=== PATIENT | female | born 1965 | race Caucasian/White ===

== ENCOUNTER 2018-10-22 18:30 | Inpatient (IN) | payer MEDICARE, MEDICAID ==
[~2018-10-22] VITALS: Ht 175.3 cm; Wt 127.0 kg
[2018-10-22] MEDS ORDERED: XARE20TA PO ×2 (18:54→23:04)
[2018-10-22] MEDS ORDERED: OXYC-404 PO (18:54)
[2018-10-22] MEDS ORDERED: EPIP0.3I2 IJ (18:54)
[2018-10-22] MEDS ORDERED: LOSA50TA88 PO (18:54)
[2018-10-22] MEDS ORDERED: ZETI10TA30 PO ×2 (18:54→23:04)
[2018-10-22] MEDS ORDERED: LIPI80TA PO (18:54)
[2018-10-22] MEDS ORDERED: RANI1SYP PO (18:54)
[2018-10-22] MEDS ORDERED: TOPA50TA8 PO (18:54)
[2018-10-22] MEDS ORDERED: DEPA1TAB3 PO (18:54)
[2018-10-22] MEDS ORDERED: ZOLO100T PO (18:54)
[2018-10-22] MEDS ORDERED: VERA360C PO ×2 (18:54→23:04)
[2018-10-22] MEDS ORDERED: FENT12PA TOP (18:54)
[2018-10-22] MEDS ORDERED: ONDANSETRON 4MG/2ML VIAL (J2405) IV ONE (20:30)
[2018-10-22 20:36] LABS: BASO % 0.1 % (0.0-1.0); HEMATOCRIT 39.2 % (36.0-47.0); HEMOGLOBIN 13.5 g/dl (12.0-15.5); LYMPH # 0.8 10^3/uL (1.5-4.5); LYMPH % 7.5 % (24.0-44.0); MEAN CORPUSCULAR HEMOGLOBIN 31.9 pg (27.0-33.0); MEAN CORPUSCULAR HGB CONC 34.4 g/dl (32.0-36.5); MEAN CORPUSCULAR VOLUME 92.7 fl (80.0-96.0); MONO # 0.2 10^3/uL (0.0-0.8); MONO % 1.8 % (0.0-5.0); NEUTROPHILS # 9.6 10^3/uL (1.8-7.7); NEUTROPHILS % 90.1 % (36.0-66.0); PLATELET COUNT, AUTOMATED 147 10^3/uL (150-450); RED BLOOD COUNT 4.23 10^6/uL (4.00-5.40); WHITE BLOOD COUNT 10.6 10^3/uL (4.0-10.0)
[2018-10-22] MEDS: MORPHINE 4 MG/ML 1ML VIAL/SYRINGE (J2270) IV PRN ×2 (20:42→22:03)
[2018-10-22 20:45] LABS: INR 1.04; PROTHROMBIN TIME 13.7 SECONDS (12.1-14.4)
[2018-10-22 20:53] LABS: BLOOD UREA NITROGEN 18 MG/DL (7-18); CALCIUM LEVEL 8.2 MG/DL (8.5-10.1); CARBON DIOXIDE LEVEL 24 MEQ/L (21-32); CHLORIDE LEVEL 106 MEQ/L (98-107); CREATININE FOR GFR 0.78 MG/DL (0.55-1.30); GLOMERULAR FILTRATION RATE > 60.0 (>51); GLUCOSE, FASTING 125 MG/DL (70-100); POTASSIUM SERUM 4.4 MEQ/L (3.5-5.1); SODIUM LEVEL 139 MEQ/L (136-145)
--- NOTE | 2018-10-22 22:09 | REP ---
Clinical: Left knee swelling . Technique: AP, lateral, bilateral oblique views of the left knee. Findings: No acute fracture or dislocation is appreciated. Mild/early moderate degenerative changes include cortical irregularity and subtle spurring primarily involving the femoral condyles as well as evidence for chondrocalcinosis. Lateral view demonstrates suprapatellar effusion. Impression: Mild/moderate degenerative changes. Suprapatellar effusion. Electronically Signed by Jason Ramires MD 10/22/2018 10:01 P
--- NOTE | 2018-10-22 22:10 | REPVR ---
EXAM: US Duplex Left Lower Extremity Veins, Limited EXAM DATE/TIME: 10/22/2018 9:41 PM CLINICAL HISTORY: 53 years old, female; Pain; Other: Knee; Additional info: Swelling, pain TECHNIQUE: Real-time Duplex ultrasound of the Left Lower Extremity with 2-D de leon scale, color Doppler flow and spectral waveform analysis. Limited exam focused on the left lower extremity veins. COMPARISON: No relevant prior studies available. FINDINGS: Left deep veins: Unremarkable. The common femoral, femoral and popliteal veins are patent without thrombus. Normal compressibility, augmentation response and Doppler waveforms. Left superficial veins: Unremarkable. Saphenofemoral junction is patent without thrombus. Soft tissues: Unremarkable. IMPRESSION: No sonographic evidence of deep vein thrombosis. Electronically signed by: Kehinde Flanagan On 10/22/2018 22:09:59 PM
[2018-10-22] MEDS ORDERED: FAMOTIDINE 20 MG TAB PO ONE (22:30)
[2018-10-22] MEDS ORDERED: OXYC20TA2 PO (22:52)
[2018-10-22] MEDS ORDERED: ATOR80TA59 PO (23:04)
[2018-10-22] MEDS ORDERED: RANI150C PO (23:04)
[2018-10-22] MEDS ORDERED: LOSA100T50 PO (23:04)
[2018-10-22] MEDS ORDERED: DIVA500T94 PO (23:04)
[2018-10-22] MEDS ORDERED: SERT-138 PO (23:04)
[2018-10-22] MEDS ORDERED: FENT1DIS14 TD (23:04)
[2018-10-22] MEDS ORDERED: TOPI50TA9 PO (23:04)
[2018-10-22] MEDS ORDERED: EPIP0.3I2 INJ (23:04)
[2018-10-23] MEDS ORDERED: ACETAMINOPHEN TAB 650MG DOSE (2X325MG) PO PRN (00:45)
[2018-10-23 00:59] VITALS: BP 168/78
[2018-10-23] MEDS: MORPHINE 4 MG/ML 1ML VIAL/SYRINGE (J2270) IV PRN ×4 (01:27→18:55)
[2018-10-23] MEDS ORDERED: ATORVASTATIN 20 MG TAB PO ONE (01:30)
[2018-10-23] MEDS ORDERED: VERAPAMIL 120 MG SR TAB PO ONE (01:30)
[2018-10-23 08:00] VITALS: BP 109/62
--- NOTE | 2018-10-23 08:28 | HPE ---
DATE OF ADMISSION: 10/22/2018 CHIEF COMPLAINT: Left knee pain following intra-articular steroid injection. HISTORY OF PRESENT ILLNESS: This 53-year-old female presented to the emergency department by ambulance. This was later yesterday evening. She was complaining about the acute onset of left knee pain following left knee injection and aspiration. This was performed by the PAYTON Gordon at [facility]. She has had Euflexxa injections in the left knee in the past without problems. This time an aspiration was attempted to be performed to rule out rheumatoid arthritis or crystalline arthropathy. This was followed by steroid injection through the same area at the anterolateral aspect of the knee. She tolerated the procedure well but then noticed about an hour later extreme knee pain. She then presented to the emergency room with difficulty ambulating. She has not noticed any constitutional symptoms such as fever, chills, sweats at night, cough, abdominal pain, nausea, vomiting, dysuria or any other symptoms. There was not any increased swelling to the knee or redness or warmth. She was just having difficulty fully flexing the knee and ambulating on it. 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 Her calf is not bothering her today. Also important to her history is that she is on Xarelto for a deep vein thrombosis (DVT) in her left lower extremity in the past. She did state that she had stopped that the day before and that day of getting the injection. She had also had blood work drawn that morning, ordered by Yoselin Gordon. PAST MEDICAL HISTORY: Includes: Hypertension. Psychiatric disorder. Gastroesophageal reflux disease (GERD). DVT. Compartment syndrome of the left lower extremity. MEDICATIONS: Ambulatory medications reported as: - atorvastatin - divalproex sodium - EpiPen - ezetimibe - fentanyl - losartan - oxycodone - ranitidine - Xarelto 20 mg by mouth daily - sertraline - topiramate - verapamil ALLERGIES: She has had allergic reactions to: 1. HYDROCHLOROTHIAZIDE. 2. NIACIN. 3. PENICILLIN. 4. PENICILLIN CROSS REACTORS. 5. QUINOLONES. 7. SULFA DRUGS. PAST SURGICAL HISTORY: Carpal tunnel release. Anterior cervical fusion. Dilatation and curettage. Hysteroscopy. REVIEW OF SYSTEMS Was negative for any constitutional symptoms in any system, other than difficulty ambulating on the left lower extremity. PHYSICAL EXAMINATION: VITAL SIGNS: Throughout her visit temperature 98.9 and 97.6. Blood pressure last night at 2:00 a.m. 168/78. Pulse rate 93. Sats 93% on room air. Respiratory rate 20. When I examined her, she was lying supine in her bed. She is alert and oriented times three. Mood and affect a little bit anxious. Lower extremity alignment is normal. Examination of the lower extremities: I removed the bandage from the anterolateral aspect of her knee. There is some slight amount of swelling but no redness or drainage from the anterolateral aspiration and injection site. No effusion noted although she does have an increased BMI, so it is slightly difficult to tell. Range of motion actively passively was from 0 to about 90 degrees of flexion, 0 to 125 degrees on the contralateral side. No evidence of instability. No redness or warmth or drainage from the knee. She had normal sensation distally in her lower extremities. Feet were warm and well-perfused on both sides. She is able to wiggle her toes, dorsiflex and plantar flex her foot. There is long incisions on the lower extremity consistent with compartment release that appear normal. Calf is soft. No pain to calf and no lumps, bumps, swelling or masses in her lower extremities. Laboratory examination from her visit last night at 2025 hours revealed WBC 10.6. Hemoglobin of 13.5. PT 13.7, INR 1.04 and APTT 32.0. Chemistries was normal. Blood work performed by Yoselin Gordon revealed WBC 6.7, neutrophil percentage 60.2. Uric acid normal 3.4. CRP 0.32. JOVON and Lyme disease are both pending. ESR was 17. Ultrasound was performed and was negative for DVT. Radiographs were performed upon presentation to the ED. These revealed moderate tricompartmental osteoarthritis of the left knee. There is also signs of CPPD with calcification of the meniscus. Very small effusion and no obvious fracture or other soft tissue abnormality. ASSESSMENT/PLAN: This 53-year-old female with an acute flare reaction following a left knee injection. I believe we can make her weightbearing as tolerated. I would like to monitor for any signs of infection over the next 24 hours, but my clinical suspicion based on her clinical exam, blood work and timeline of her pain do not fit with infection, but I do think it is reasonable to obtain serial CRP tests to rule this out. I do not think it is a good idea to try a repeat aspiration of the knee as I think that due to being on Xarelto chronically for left lower extremity DVT could have contributed to a slight amount of bleeding intra-articular of the knee which is quite an irritant to the synovium and can be increasing her pain. When I saw her, she was already asking if she could go home as she did have appointments for physiotherapy and a psychiatric visit later the next day, but I think it is more reasonable to least monitor her for at least one day to ensure that this is settling down. We will try to mobilize her weightbearing as tolerated, elevate the leg, as well as try some anti-inflammatory medications to try and help settle down her pain. Thank you very much for the consult. Edited 10/24/2018 @ 0722 siri
[2018-10-23] MEDS ORDERED: fentaNYL 25 MCG/HR PATCH TD SCH (09:00)
[2018-10-23] MEDS: NAPROXEN 250 MG TAB PO SCH ×2 (09:24→20:44)
[2018-10-23] MEDS ORDERED: FENTANYL REMOVAL DOCUMENTATION MISC XX SCH (12:45)
[2018-10-23] MEDS: DIVALPROEX 500 MG TAB PO SCH ×2 (13:33→20:44)
[2018-10-23] MEDS: LOSARTAN 50 MG TAB PO SCH (13:34)
[2018-10-23] MEDS: FAMOTIDINE 20 MG TAB PO SCH (13:34)
[2018-10-23] MEDS: SERTRALINE 100 MG TAB PO SCH (13:34)
[2018-10-23 16:00] VITALS: BP 137/76
[2018-10-23] MEDS ORDERED: RIVAROXABAN 20 MG TAB (XARELTO) PO SCH (17:00)
[2018-10-23] MEDS: NICOTINE 14 MG/24 HR TRANSDERMAL TD SCH (17:21)
[2018-10-23 20:00] VITALS: BP 130/64
[2018-10-23] MEDS: oxyCODONE 5MG TAB PO PRN (20:48)
[2018-10-23] MEDS ORDERED: TOPIRAMATE (TopAMAX) 25 MG TAB PO SCH (21:00)
[2018-10-23] MEDS ORDERED: ATORVASTATIN 20 MG TAB PO SCH (21:00)
[2018-10-23] MEDS ORDERED: EZETIMIBE 10 MG TAB (ZETIA) PO SCH (21:00)
[2018-10-23] MEDS ORDERED: VERAPAMIL 120 MG SR TAB PO SCH (21:00)
[2018-10-23 21:51] VITALS: BP 159/79
[2018-10-24 06:00] VITALS: BP 123/62
--- NOTE | 2018-10-24 07:30 | IPN ---
DATE: 10/24/2018 CHIEF COMPLAINT: Post admit day 1, left knee pain following steroid injection. HISTORY OF PRESENT ILLNESS: This 53-year-old female has chronic group home osteoarthritis (OA) of her left knee as well as radiographic findings of CPPD. She underwent a left knee injection now approximately 36 hours ago as well as attempted aspiration for no fluid. She came to the hospital with uncontrolled pain. I was not overly concerned about infection, but I think she had more of an acute flare reaction from the intra-articular steroid injection. I saw her this morning on [address]. She is doing much better. She is able to ambulate. The pain has subsided in her knee. No concerns from her nurses. On physical exam, her vital signs show temperature of 98.3, blood pressure 123/62, pulse rate 60, respiratory rate 19, 99% on room air. She is sitting up at the edge of the bed. She looks comfortable. She is alert and oriented times three. Mood and affect pleasant and positive. Her range of motion of the knee has returned to her baseline, 0 to about 100 degrees. There is no obvious overlying redness, swelling, ecchymosis or deformity. There is no warmth to the knee. No drainage. The needle site looks good without evidence of redness or drainage. The knee has largely settled down. She is able to wiggle her toes, dorsiflex and plantar flex her foot. The foot is warm and well perfused. Laboratory examination has not returned yet for this morning, but has been done. CRP is pending. ASSESSMENT/PLAN: This 53-year-old female can be weightbearing as tolerated. I am not concerned that this is anything more than acute flare-up of her pain. She will be discharged home today. We have ordered a walker for her in case there is some residual weakness or deconditioning to the left lower extremity. She should follow-up with Yoselin Gordon as an outpatient and her pain medications will be through her pain physician.
[2018-10-24] MEDS: NICOTINE 14 MG/24 HR TRANSDERMAL TD SCH (09:00)
[2018-10-24] MEDS: DIVALPROEX 500 MG TAB PO SCH (09:21)
[2018-10-24] MEDS: SERTRALINE 100 MG TAB PO SCH (09:22)
[2018-10-24] MEDS: NAPROXEN 250 MG TAB PO SCH (09:22)
[2018-10-24 09:23] VITALS: BP 123/62
[2018-10-24] MEDS: LOSARTAN 50 MG TAB PO SCH (09:23)
[2018-10-24] MEDS: oxyCODONE 5MG TAB PO PRN (09:23)
[2018-10-24] MEDS: FAMOTIDINE 20 MG TAB PO SCH (09:24)
--- NOTE | 2018-11-06 16:49 | DSES ---
DATE OF ADMISSION: 10/22/2018 DATE OF DISCHARGE: 10/24/2018 DISCHARGE DIAGNOSIS: Left knee pain after steroid injection. HISTORY: This is a 53-year-old female who presented to the hospital with complaints of left knee pain following intra-articular steroid injection by a physician pharmacy assistant at [facility]. She was seen and assessed. Found to have no signs or symptoms of infection and discharged home after a 24-hour stay. DIAGNOSTIC DATA: Laboratory examination: White blood cell count 10.6. Coagulation factors were normal and chemistry revealed a CRP of 0.87. HOSPITAL COURSE: Uncomplicated. DISCHARGE MEDICATIONS: Were her home medications. No new medications were prescribed. Home medications include: - verapamil - atorvastatin - ezetimibe - topiramate - rivaroxaban - oxycodone - naproxen - divalproex sodium - Fentanyl - losartan - famotidine - sertraline - nicotine - atorvastatin - verapamil - acetaminophen - morphine - famotidine - ondansetron COMPLICATIONS: None. DISCHARGE PLAN: To follow up on as-needed basis with either myself or with the physician pharmacy assistant who performed the intra-articular knee injection.
== END 2018-10-24 10:10 | disposition home or self-care (01) | DRG 556 ==
LOC: M ED 18:30 → M ED INP 22:25 → M PCU 10-23 00:39 → M MS5PR 10-23 21:49
PROVIDERS: ADMIT Orthopaedic Surgery Sports Medicine; ATTEND Orthopaedic Surgery Sports Medicine
DX: M25.562 Pain in left knee (principal); I10 Essential (primary) hypertension; K21.9 Gastro-esophageal reflux disease without esophagitis; F45.9 Somatoform disorder, unspecified; Z79.01 Long term (current) use of anticoagulants; M17.12 Unilateral primary osteoarthritis, left knee; Z79.891 Long term (current) use of opiate analgesic; Z79.899 Other long term (current) drug therapy; Z88.0 Allergy status to penicillin; Z88.1 Allergy status to other antibiotic agents; Z88.2 Allergy status to sulfonamides; Z88.8 Allergy status to other drugs, medicaments and biological substances; Z98.1 Arthrodesis status; Z90.710 Acquired absence of both cervix and uterus; Z86.718 Personal history of other venous thrombosis and embolism

== ENCOUNTER → 2018-10-22 | Outpatient (REF) | payer OTHER, MEDICAID ==
[~2018-10-22] MED LIST: ATOR80TA59 PO; DEPA1TAB3 PO; DIVA500T94 PO; EPIP0.3I2 IJ; EPIP0.3I2 INJ; FENT12PA TOP; FENT1DIS14 TD; LIPI80TA PO; LOSA100T50 PO; LOSA50TA88 PO; OXYC-404 PO; OXYC20TA2 PO; RANI150C PO; RANI1SYP PO; SERT-138 PO; TOPA50TA8 PO; TOPI50TA9 PO; VERA360C PO; XARE20TA PO; ZETI10TA30 PO; ZOLO100T PO
[2018-10-22 18:51] LABS: BASO % 0.4 % (0.0-1.0); EOS # 0.1 10^3/uL (0.0-0.50); EOS % 1.9 % (0.0-3.0); HEMATOCRIT 39.2 % (36.0-47.0); HEMOGLOBIN 13.1 g/dl (12.0-15.5); LYMPH # 1.7 10^3/uL (1.5-4.5); LYMPH % 25.2 % (24.0-44.0); MEAN CORPUSCULAR HEMOGLOBIN 31.8 pg (27.0-33.0); MEAN CORPUSCULAR HGB CONC 33.4 g/dl (32.0-36.5); MEAN CORPUSCULAR VOLUME 95.1 fl (80.0-96.0); MONO # 0.8 10^3/uL (0.0-0.8); MONO % 11.9 % (0.0-5.0); NEUTROPHILS # 4.1 10^3/uL (1.8-7.7); NEUTROPHILS % 60.2 % (36.0-66.0); PLATELET COUNT, AUTOMATED 168 10^3/uL (150-450); RED BLOOD COUNT 4.12 10^6/uL (4.00-5.40); WHITE BLOOD COUNT 6.7 10^3/uL (4.0-10.0)
[2018-10-22 19:01] LABS: C REACTIVE PROTEIN QUANTITATIV 0.32 MG/DL (0.00-0.30); URIC ACID 3.4 MG/DL (2.6-6.0)
[2018-10-22 19:59] LABS: ERYTHROCYTE SEDIMENTATION RATE 17 mm/hr (0-30)
[2018-10-25 00:06] LABS: ANTINUCLEAR ANTIBODIES DIRECT Negative (Negative); Lyme Disease IgG/IgM Antibodie <0.91 ISR (0.00-0.90); Lyme Disease IgM Ab Quantitati <0.80 index (0.00-0.79)
== END ==
LOC: M LABDRAW1 17:47
PROVIDERS: ATTEND Physician Assistant Surgical
DX: M17.12 Unilateral primary osteoarthritis, left knee (principal)